=== PATIENT | female | born 1955 | race Caucasian/White ===

== ENCOUNTER 2016-11-19 12:30 | Outpatient (CLI) | payer MEDICARE ==
[2016-10-19 06:31] VITALS: BP 138/64
[2016-11-19 12:57] LABS: eGFR (African) > 60; eGFR (Non-African) > 60
== END 2016-11-19 12:32 ==
LOC: LABRHC 12:30
PROVIDERS: ATTEND Family Medicine
DX: E11.9 Type 2 diabetes mellitus without complications (principal); R60.0 Localized edema
CPT/HCPCS: 80048

== ENCOUNTER 2016-12-20 12:16 | Outpatient (CLI) | payer MEDICARE ==
[2016-10-19 06:31] VITALS: BP 138/64
[2016-12-20 13:24] LABS: eGFR (African) > 60; eGFR (Non-African) > 60
== END 2016-12-20 12:17 ==
LOC: LAB 12:16
PROVIDERS: ATTEND Family Medicine
DX: E11.9 Type 2 diabetes mellitus without complications (principal)
CPT/HCPCS: 36415; 80053; 82043; 83036

== ENCOUNTER 2017-02-07 11:40 | Outpatient (CLI) | payer MEDICARE ==
[2016-10-19 06:31] VITALS: BP 138/64
[2017-02-07 12:07] LABS: BASOPHILS % 0.6 (0.0-1.5); EOSINOPHILS % 1.1 % (0.0-6.8); MEAN CORPUSCULAR HEMOGLOBIN 30.6 pg (28.0-34.0); MEAN CORPUSCULAR VOLUME 93.2 fl (80.0-100.0); MONOCYTES % 4.7 % (0.0-11.0); NEUTROPHILS # 5.9 # k/uL (1.4-7.7)
[2017-02-07 12:24] LABS: eGFR (African) > 60; eGFR (Non-African) > 60
== END 2017-02-07 11:42 ==
LOC: LAB 11:40
PROVIDERS: ATTEND Family Medicine
DX: A43.0 Pulmonary nocardiosis (principal)
CPT/HCPCS: 36415; 80048; 85025

== ENCOUNTER 2017-04-11 12:27 | Outpatient (CLI) | payer MEDICARE ==
[2016-10-19 06:31] VITALS: BP 138/64
[2017-04-11 13:19] LABS: eGFR (African) > 60; eGFR (Non-African) > 60
== END 2017-04-11 12:30 ==
LOC: LAB 12:27
PROVIDERS: ATTEND Family Medicine
DX: E11.9 Type 2 diabetes mellitus without complications (principal)
CPT/HCPCS: 36415; 80053; 80061; 83036

== ENCOUNTER 2017-06-14 13:41 | Outpatient (CLI) | payer MEDICARE ==
[2016-10-19 06:31] VITALS: BP 138/64
--- NOTE | 2017-06-14 14:47 | Diagnostic Imaging Report ---
LIZANDRO WEBB [facility] [address] [facility].[address] [address] Report Submission Date: Jun 14, 2017 2:29:37 PM CDT Patient Study Name: YONIS KUO Date: Jun 14, 2017 1:56:45 PM CDT Modality Type: CR Gender: F Description: PELVIS : 51 Institution: [facility] Physician: LIZANDRO WEBB Examination: Plain film hip History: Hip discomfort Comparison exams: None provided Findings: 2 views of the hip demonstrates the joint space narrowing. Articular ossific spurring. Minimal subchondral cyst formation. No evidence for fracture line. Superior and inferior pubic rami and iliac wing are without advanced degenerative changes. Sacroiliac joint degenerative changes. Pelvic phleboliths. Impression: Articular degenerative changes without fracture. Electronically signed on Jun 14, 2017 2:29:37 PM CDT by: Sudeep VARGAS
== END 2017-06-14 13:42 ==
LOC: RAD 13:41
PROVIDERS: ATTEND Family Medicine
DX: M25.552 Pain in left hip (principal)

== ENCOUNTER 2017-08-07 10:22 | Outpatient (CLI) | payer OTHER ==
[2016-10-19 06:31] VITALS: BP 138/64
== END 2017-08-07 10:23 ==
LOC: LAB 10:22
PROVIDERS: ATTEND Family Medicine
DX: E11.9 Type 2 diabetes mellitus without complications (principal)
CPT/HCPCS: 36415; 83036

== ENCOUNTER 2017-12-13 13:20 | Outpatient (CLI) | payer MEDICARE, MEDICAID ==
[2016-10-19 06:31] VITALS: BP 138/64
[2017-12-13 13:35] LABS: MEAN CORPUSCULAR HEMOGLOBIN 29.9 pg (28.0-34.0); MEAN CORPUSCULAR VOLUME 92.4 fl (80.0-100.0)
[2017-12-13 14:00] LABS: EOSINOPHILS % 2 % (0-7); MONOCYTES % 6 % (0-11); SEGMENTED NEUTROPHILS % 77 % (39-79)
[2017-12-13 23:39] LABS: SERUM IRON 71 ug/dL (37-145)
== END 2017-12-13 13:21 ==
LOC: LABRHC 13:20
PROVIDERS: ATTEND Family Medicine
DX: D50.9 Iron deficiency anemia, unspecified (principal)
CPT/HCPCS: 83540; 83550; 85025

== ENCOUNTER 2018-02-15 11:13 | Emergency (ER) | payer MEDICARE, OTHER ==
[2018-02-15 11:24] VITALS: BP 147/47
--- NOTE | 2018-02-15 11:39 | ED Physician Documentation ---
General Adult - HISTORIAN Historian: patient - HPI Stated Complaint: Left Knee Pain Chief Complaint: General Adult Additional Information: Daughter insisted she come to ER to see if she has a blood clot in her left leg. She has been sick with pneumonia most of this month and subsequently less active. There is no new pain or redness in the left leg. She measures her legs daily and says the left is an inch larger than the right, though this varies between legs. She has chronic SOB and this has not recently changed. She also has CHF and chronic bilateral leg swelling. She has taken Eliquis for 5 years. She has an appointment with Dr. Frye on , February 20. - ROS CONST: recent illness MS/SKIN/LYMPH: joint pain (lateral, above left knee). denies: calf pain - PAST HX Past History: other (sarcoidosis, pneumonia, RSV, CHF, cellulitis of leg) Allergies/Adverse Reactions: Allergies Allergy/AdvReac Type Severity Reaction Status Date / Time cefotetan disodium Allergy Unknown Verified 10/16/16 09:33 Dextrose-Water Allergy Unknown Verified 10/16/16 09:33 Sulfa (Sulfonamide Allergy Unknown Verified 10/16/16 09:33 Antibiotics) adhesive Allergy Rash Verified 10/16/16 09:33 sulfamethoxazole Allergy Hives Verified 10/16/16 09:33 [From Bactrim] trimethoprim [From Bactrim] Allergy Hives Verified 10/16/16 09:33 amiodarone AdvReac Shortness Verified 10/16/16 09:33 of Breath butorphanol tartrate AdvReac Shortness Verified 10/16/16 09:33 [From Stadol] of Breath diltiazem HCl [From Cardizem] AdvReac Shortness Verified 10/16/16 09:33 of Breath doxazosin mesylate AdvReac Shortness Verified 10/16/16 09:33 [From Cardura] of Breath gabapentin [From Neurontin] AdvReac Dizziness Verified 10/16/16 09:33 ketamine AdvReac memory Verified 02/15/18 11:26 impairment NSAIDS (Non-Steroidal AdvReac Abdominal Verified 10/16/16 09:33 Anti-Inflamma Pain pregabalin [From Lyrica] AdvReac Shortness Verified 10/16/16 09:33 of Breath Home Medications: Ambulatory Orders Medication Instructions Recorded Apixaban [Eliquis] 5 mg PO DAILY 02/15/18 Arformoterol Tartrate [Brovana] 15 mcg IH BID 02/15/18 Benazepril HCl [Lotensin] 20 mg PO DAILY 02/15/18 Bisoprolol Fumarate [Zebeta] 10 mg PO DAILY 02/15/18 Famotidine 40 mg PO BID 02/15/18 Famotidine [Famotidine] 02/15/18 Fluticasone/Vilanterol [Breo 1 each IH DAILY 02/15/18 Ellipta 200-25 Mcg INH] Furosemide [Lasix] 02/15/18 Insulin Lispro [Humalog Kwikpen 40 units SQ HS 02/15/18 U-100] Ipratropium/Albuterol Sulfate 3 ml NEB DAILY 02/15/18 [Duoneb] Morphine Sulfate [Morphine Sulfate 60 mg PO BID 02/15/18 ER] Oxycodone HCl/Acetaminophen 1 each PO Q4H 02/15/18 [Endocet 7.5-325 mg Tablet] Pravastatin Sodium [Pravastatin 40 mg PO HS 02/15/18 Sodium] - SOCIAL HX Smoking History: quit greater than 1 year - FAMILY HX Family History: No - VITAL SIGNS Vital Signs: Vital Signs Temp Pulse Resp BP Pulse Ox 98.6 F 78 18 147/47 96 02/15/18 11:15 02/15/18 11:15 02/15/18 11:15 02/15/18 11:15 02/15/18 11:15 - REVIEWED ASSESSMENTS Nursing Assessment Reviewed: Yes Vitals Reviewed: Yes Progress - Progress Progress: Explained that US not available at this facility and that CT of her leg would not be helpful. Offered to arrange for ER eval/US at another facility, but patient declined. Explaine dthat I could not guarantee that there was not a clot in the left leg. That if she chose to forego referral, she was to return to the ER immediately with CP, new SOB, pain or redness or warmth in the leg. Her gait was improved as she left the ER. General Adult Physical Exam - PHYSICAL EXAM GENERAL APPEARANCE: mild distress EENT: eye inspection normal NECK: normal inspection RESPIRATORY: no resp distress BACK: other (fluid movements w/o pain) SKIN: warm/dry, normal color (lower legs pink, skin smooth, slight shine, no hair growth) EXTREMITIES: normal range of motion (antalgic gait ), no evidence of injury, no edema (brawny edema both lower legs, w/o focal warmth or swelling or tenderness. ) NEURO: CN's nml as tested, motor nml, sensation nml Discharge Clincal Impression: Left leg swelling Referrals: Wyatt Frye MD [Primary Care Provider] - 2 Days Additional Instructions: Keep your appointment with Dr. Frye February 20. Return to the ER immediately if there is localized swelling, redness, heat in your leg or if you have chest pain or sudden difficulty breathing. Condition: Fair Disposition: 01 HOME, SELF-CARE Decision to Admit: NO Decision Time: 11:50
== END 2018-02-15 11:45 | disposition home or self-care (01) ==
LOC: ED 11:13
DX: R60.9 Edema, unspecified (principal)
CPT/HCPCS: 99282

== ENCOUNTER 2018-02-20 12:55 | Outpatient (CLI) | payer MEDICARE, MEDICAID ==
[2018-02-20 13:11] LABS: eGFR (African) > 60; eGFR (Non-African) > 60
== END 2018-02-20 12:56 ==
LOC: LABRHC 12:55
PROVIDERS: ATTEND Family Medicine
DX: E11.9 Type 2 diabetes mellitus without complications (principal); I10 Essential (primary) hypertension; I50.9 Heart failure, unspecified
CPT/HCPCS: 80053; 82043; 83036; 83880

== ENCOUNTER 2018-06-12 15:49 | Outpatient (CLI) | payer MEDICARE, MEDICAID ==
[2018-06-12 17:20] LABS: eGFR (African) > 60; eGFR (Non-African) > 60
== END 2018-06-12 15:55 | disposition home or self-care (01) ==
LOC: LABRHC 15:49
PROVIDERS: ATTEND Family Medicine
DX: E11.9 Type 2 diabetes mellitus without complications (principal)
CPT/HCPCS: 80053; 80061; 83036

== ENCOUNTER 2018-07-16 12:33 | Outpatient (CLI) | payer MEDICARE, OTHER ==
--- NOTE | 2018-07-16 21:45 | Diagnostic Imaging Report ---
LIZANDRO WEBB [facility] [address] [address] Report Submission Date: Jul 16, 2018 1:02:50 PM CDT Patient Study Name: YONIS KUO Date: Jul 16, 2018 12:39:38 PM CDT Modality Type: DX Gender: F Description: LOWER EXTREMITY : 51 Institution: [facility] Physician: LIZANDRO WEBB Examination: Plain film right foot History: RT FOOT, PAIN IN RT FOOT AFTER A CAT RAN INTO HER FOOT ON 07/13/18 (Hx) Findings: 3 views of the right foot demonstrates diffuse osteopenia. The articular degenerative changes. No fracture or dislocation. Calcaneal spurs. No soft tissue swelling. No joint effusion. Impression: Osteopenia and degenerative changes. No acute appearing cortical abnormality. Electronically signed on Jul 16, 2018 1:02:50 PM CDT by: Sudeep VARGAS
== END 2018-07-16 12:35 ==
LOC: RAD 12:33
PROVIDERS: ATTEND Family Medicine
DX: M25.571 Pain in right ankle and joints of right foot (principal)
CPT/HCPCS: 73630

== ENCOUNTER 2018-09-18 10:18 | Outpatient (CLI) | payer MEDICARE, OTHER ==
[2018-09-18 11:36] LABS: eGFR (Non-African) > 60
--- NOTE | 2018-09-19 03:52 | Diagnostic Imaging Report ---
LIZANDRO WEBB [facility] [address] [facility].[address] [address] Report Submission Date: Sep 18, 2018 11:50:08 AM DISABILITY HEARING OFFICER Patient Study Name: YONIS KUO Date: Sep 18, 2018 10:22:02 AM DISABILITY HEARING OFFICER Modality Type: DX Gender: F Description: CHEST : 51 Institution: [facility] Physician: LIZANDRO WEBB Examination: PA and lateral chest. History: Evaluate lung braxton. Comparison exam: None provided. Findings: PA and lateral views of the chest demonstrates a normal cardiac silhouette. Mild hilar prominence - patient with reported history of sarcoidosis. Vascular calcifications involving aortic arch. Chronic interstitial changes. No focal infiltrate. No blunting of the costophrenic margins. Osseous structures are appropriate for age. Impression: Chronic interstitial changes. No acute pulmonary process. Electronically signed on Sep 18, 2018 11:50:08 AM DISABILITY HEARING OFFICER by: Sudeep VARGAS
== END 2018-09-18 10:20 ==
LOC: LAB 10:18
PROVIDERS: ATTEND Family Medicine
DX: E11.9 Type 2 diabetes mellitus without complications (principal); I10 Essential (primary) hypertension; J44.9 Chronic obstructive pulmonary disease, unspecified
CPT/HCPCS: 36415; 71046; 80053; 83036; 83880

== ENCOUNTER 2018-12-12 08:41 | Outpatient (CLI) | payer MEDICARE, OTHER ==
[2018-12-12 10:02] LABS: eGFR (Non-African) > 60
== END 2018-12-12 09:00 ==
LOC: LAB 08:41
PROVIDERS: ATTEND Family Medicine
DX: E11.9 Type 2 diabetes mellitus without complications (principal); I48.91 Unspecified atrial fibrillation
CPT/HCPCS: 36415; 80053; 80061; 80162; 82043; 83036

== ENCOUNTER 2019-03-19 10:06 | Outpatient (CLI) | payer MEDICARE, OTHER ==
[2019-04-23 07:28] LABS: eGFR (Non-African) > 60
== END 2019-03-19 10:11 | disposition home or self-care (01) ==
LOC: LAB 10:06
PROVIDERS: ATTEND Family Medicine
DX: E11.51 Type 2 diabetes mellitus with diabetic peripheral angiopathy without gangrene (principal)
CPT/HCPCS: 36415; 80053; 80061; 82043; 83036

== ENCOUNTER 2019-06-19 12:07 | Outpatient (CLI) | payer MEDICARE, OTHER ==
[2019-06-19 13:54] LABS: HDL 39 mg/dL (>40); eGFR (Non-African) > 60
--- NOTE | 2019-06-19 15:23 | Diagnostic Imaging Report ---
LIZANDRO WEBB [facility] [address] [facility] [address] [place] [address]. [address] Report Submission Date: Jun 19, 2019 2:54:23 PM CDT Patient Study Name: YONIS KUO Date: Jun 19, 2019 12:27:06 PM CDT Modality Type: DX Gender: F Description: CHEST 2VIEW : 51 Institution: [facility] Physician: LIZANDRO WEBB Examination: PA and lateral chest. History: Evaluate lung braxton. Shortness of breath. Comparison exam: 18 September 2018 Findings: PA and lateral views of the chest demonstrates a normal cardiac and mediastinal silhouette. Mildly tortuous aorta with vascular calcifications. Chronic interstitial changes. No focal infiltrate. No blunting of the costophrenic margins. Osseous structures are appropriate for age. Impression: Chronic appearing interstitial changes. No focal consolidation or effusion. Electronically signed on Jun 19, 2019 2:54:23 PM CDT by: Sudeep VARGAS
[2019-06-22 07:59] LABS: A1C 8.9 % (<5.7)
== END 2019-06-19 12:10 ==
LOC: LAB 12:07
PROVIDERS: ATTEND Family Medicine
DX: E11.9 Type 2 diabetes mellitus without complications (principal); I48.91 Unspecified atrial fibrillation; R06.02 Shortness of breath
CPT/HCPCS: 36415; 71046; 80053; 80061; 80162; 83036

== ENCOUNTER 2019-08-07 15:32 | Emergency (ER) | payer MEDICARE, OTHER ==
--- NOTE | 2019-08-07 15:43 | ED Physician Documentation ---
General Adult - HISTORIAN Historian: patient - HPI Stated Complaint: shortness of air Chief Complaint: Asthma Onset: hours (6 hours ago - increasing over last few weeks ) Timing: still present, worse Severity: moderate Further Comments: yes (She states that she has several lung issues she does not take daily steriods to not affecte her blood sugar. She states that she has sinus drainage and increased cough. No swelling. No fever. She states she had Lasix last week from her cardilogy) - ROS CONST: no problems MS/SKIN/LYMPH: none NEURO/PSYCH: headache (sinus ) - PAST HX Past History: COPD, CHF Immunizations: UTD Allergies/Adverse Reactions: Allergies Allergy/AdvReac Type Severity Reaction Status Date / Time cefotetan disodium Allergy Unknown Verified 08/07/19 15:44 Dextrose-Water Allergy Unknown Verified 08/07/19 15:44 Sulfa (Sulfonamide Allergy Unknown Verified 08/07/19 15:44 Antibiotics) adhesive Allergy Rash Verified 08/07/19 15:44 sulfamethoxazole Allergy Hives Verified 08/07/19 15:44 [From Bactrim] trimethoprim [From Bactrim] Allergy Hives Verified 08/07/19 15:44 amiodarone AdvReac Shortness Verified 08/07/19 15:44 of Breath butorphanol tartrate AdvReac Shortness Verified 08/07/19 15:44 [From Stadol] of Breath diltiazem HCl [From Cardizem] AdvReac Shortness Verified 08/07/19 15:44 of Breath doxazosin mesylate AdvReac Shortness Verified 08/07/19 15:44 [From Cardura] of Breath gabapentin [From Neurontin] AdvReac Dizziness Verified 08/07/19 15:44 ketamine AdvReac memory Verified 08/07/19 15:44 impairment NSAIDS (Non-Steroidal AdvReac Abdominal Verified 08/07/19 15:44 Anti-Inflamma Pain pregabalin [From Lyrica] AdvReac Shortness Verified 08/07/19 15:44 of Breath Home Medications: Ambulatory Orders Medication Instructions Recorded Arformoterol (Nf) [Brovana] 15 mcg IH BID 02/15/18 Bisoprolol Fumarate [Zebeta] 10 mg PO DAILY 02/15/18 Ipratropium/Albuterol Sulfate 3 ml NEB DAILY 02/15/18 [Duoneb] - SOCIAL HX Smoking History: non-smoker Alcohol Use: none Drug Use: none - FAMILY HX Family History: No - VITAL SIGNS Vital Signs: Vital Signs Temp Pulse Resp BP Pulse Ox 147/47 02/15/18 11:45 - REVIEWED ASSESSMENTS Nursing Assessment Reviewed: Yes Vitals Reviewed: Yes Progress - Progress Progress: 1650: Lung sounds slightly improved post neb DG Discussed case with no edema will not give additional lasix and she will start her home prednisone DG ED Results Lab/Radiology - Orders Orders: ED Orders Category Date Time Status Ipratropium/Albuterol Sulfate [Duoneb] Med 08/07/19 15:32 Discontinued 3 ml NEB .STK-MED ONE General Adult Physical Exam - PHYSICAL EXAM GENERAL APPEARANCE: no distress EENT: eye inspection normal, ENT inspection normal, pharynx normal, no signs of dehydration NECK: normal inspection RESPIRATORY: no resp distress, wheezes, rhonchi CVS: reg rate & rhythm, heart sounds normal ABDOMEN: soft, normal bowel sounds, no distension BACK: normal inspection SKIN: warm/dry, normal color EXTREMITIES: non-tender, no edema NEURO: oriented X3 Discharge Clincal Impression: Sinusitis Qualifiers: Sinusitis location: frontal Chronicity: acute Recurrence: recurrent Qualified Code(s): J01.11 - Acute recurrent frontal sinusitis Referrals: Wyatt Frye MD [Primary Care Provider] - 2 Days Comments: 1. Levaquin 750 mg take 1 by mouth daily x 7 days 2. Prednisone 20 mg take 1 by mouth 5 x days 3. Use nebs 4. Follow up with your Dr Saturday 5. Return to ER for any increased concerns Condition: Stable Disposition: 01 HOME, SELF-CARE Decision to Admit: NO Date of Decison to Admit: 08/07/19 Decision Time: 16:51
[2019-08-07] MEDS: IPRATROPIUM/ALBUTEROL SULFATE 3 ML AMPUL.NEB NEB ONE ×2 (15:57)
[2019-08-07 16:02] LABS: BASOPHILS % 0.5 % (0.0-1.5); NEUTROPHILS # 6.8 # k/uL (1.4-7.7)
[2019-08-07] MEDS: methylPREDNISolone SOD SUCC 125 MG/2 ML VIAL IVP ONE (16:10)
--- NOTE | 2019-08-07 16:17 | Diagnostic Imaging Report ---
PATIENT MR#: [id number] PATIENT PATIENT NAME: YONIS KUO DATE OF : 1955 REFERRING PHYSICIAN: Tami Cox EXAM DATE: 08/07/2019 ACCESSION NUMBER: [id number] EXAM DESCRIPTION: CHEST 2VIEW Exam: Chest two views. History: Shortness of breath. The examination is compared to study dated June 19, 2019. Lung braxton are well aerated. Prominent interstitial markings described previously is chronic have n ot changed in the interval. No consolidations or effusions are seen. Heart and mediastinal contour stable with athero sclerotic plaques seen in the aorta. Impression: No interval change. Read by: Dr. Regan Edwards Transcribed by: Transcribed Date: Electronically signed by: Dr. Regan Edwards Date signed: 08/07/2019 4:16:35 PM
[2019-08-07 16:18] LABS: eGFR (Non-African) > 60
[2019-08-07 17:01] VITALS: BP 142/81
== END 2019-08-07 16:55 | disposition home or self-care (01) ==
LOC: ED 15:32
DX: J01.11 Acute recurrent frontal sinusitis (principal)
CPT/HCPCS: 71046; 80053; 83880; 85025; 94640; 96374; 99283; 99284; J2930; S1016

== ENCOUNTER 2019-08-10 13:36 | Inpatient (IN) | payer MEDICARE, OTHER ==
[2019-08-10 14:05] VITALS: BMI 32.1
[2019-08-10] MEDS ORDERED: methylPREDNISolone SOD SUCC 125 MG/2 ML VIAL IVP ONE (14:46)
[2019-08-10 15:45] LABS: eGFR (Non-African) > 60
[2019-08-10 15:46] LABS: BASOPHILS % 0.9 % (0.0-1.5); NEUTROPHILS # 9.9 # k/uL (1.4-7.7)
[2019-08-10 15:47] LABS: ANISOCYTOSIS 1+ (NEGATIVE); SEGMENTED NEUTROPHILS % 62 % (39-79)
--- NOTE | 2019-08-10 17:34 | History and Physical Report ---
History of Present Illnes - History of Present Illness Reason for Visit: dyspnea History of Present Illness: 64-year-old white female with a known history of COPD. Patient is multiple other medical problems including atrial fibrillation, diabetes mellitus, and chronic pain to the lower back. over the last week patient is had increasing shortness of breath dyspnea. Patient stated the symptoms began of the head cold and then moved down into her lungs. Patient no has a productive cough of some green to yellow phlegm. Has had a low-grade fever and chills.patient has been complaining of chest pain related to coughing. Patient been having increasing shortness of breath. Patient was seen in the emergency room started on antibiotic therapy and was given 120mg of sloumedrol. Patient states that the symptoms did not improve the last several days. Patient was seen in the office today. Patient pulse ox was 84% on room air. Patient subsequently admitted to the hospital for further care and evaluation. - Past Medical History Cardiac: AFIB, CAD (30-40% RCA stenosis 04/30), CHF (60% EF 11/04 Echo), HTN Pulmonary: COPD, Other (Pulmonary hypertension) Gastrointestinal: GERD Heme/Onc: Other (H/o DVT) Musculoskeletal: Chronic low back pain Rheumatologic: Rheumatoid arthritis, Other (Sarcoidosis) Endocrine: Diabetes (Last A1C was 9.4 01/02.) - Past Surgical History Past Surgical History: Cholecystectomy, , Tubal Ligation, Tonsillectomy (Adenoidectomy), Other (neuroma excision from foot, lapaarotomy, ear tubes) - Past Family History Mother Family History: Cancer (bone marrow cancer, skin cancer) Father Family History: None - Past Social History Smoke: Quit Occupation: Disabled nurse Alcohol: None Drugs: None Lives: With Family - Health Maintenance Health Maintenance: Influenza Vaccine, Pneumococcal Vaccine, Mammogram Influenza Vaccine: No Pneumonia Vaccine: Yes Resuscitation Status: Resusciation Status Resuscitation Status Full Code - Unable to Obtain History Unable to Obtain: No Review of Systems - Review of Systems Constitutional: Fever, Chills, Sweats, Weakness Eyes: negative: pain, vision change, conjunctivae inflammation ENT: Nose Discharge (clear). negative: Ear Pain, Ear Discharge, Nose Pain, Nose Congestion, Mouth Pain, Mouth Swelling, Throat Swelling Respiratory: Cough, Shortness of Breath, SOB with Excertion, Pleuritic Pain, Sputum (green). negative: Hemoptysis, Wheezing Cardiovascular: Chest Pain, Palpitations. negative: Orthopnea, Paroxysmal Noc. Dyspnea, Edema, Light Headedness Gastrointestinal: negative: Nausea, Vomiting, Abdominal Pain, Diarrhea, Constipation, Melena, Hematochezia Genitourinary: negative: Dysuria, Frequency, Incontinence, Hematuria Musculoskeletal: Back Pain Skin: negative: Rash Neurological: negative: Weakness, Numbness, Incoordination, Change in Speech, Confusion, Seizures - Medications/Allergies Allergies/Adverse Reactions: Allergies Allergy/AdvReac Type Severity Reaction Status Date / Time cefotetan disodium Allergy Unknown Verified 08/07/19 15:44 Dextrose-Water Allergy Unknown Verified 08/07/19 15:44 Sulfa (Sulfonamide Allergy Unknown Verified 08/07/19 15:44 Antibiotics) adhesive Allergy Rash Verified 08/07/19 15:44 sulfamethoxazole Allergy Hives Verified 08/07/19 15:44 [From Bactrim] trimethoprim [From Bactrim] Allergy Hives Verified 08/07/19 15:44 amiodarone AdvReac Shortness Verified 08/07/19 15:44 of Breath butorphanol tartrate AdvReac Shortness Verified 08/07/19 15:44 [From Stadol] of Breath diltiazem HCl [From Cardizem] AdvReac Shortness Verified 08/07/19 15:44 of Breath doxazosin mesylate AdvReac Shortness Verified 08/07/19 15:44 [From Cardura] of Breath gabapentin [From Neurontin] AdvReac Dizziness Verified 08/07/19 15:44 ketamine AdvReac memory Verified 08/07/19 15:44 impairment NSAIDS (Non-Steroidal AdvReac Abdominal Verified 08/07/19 15:44 Anti-Inflamma Pain pregabalin [From Lyrica] AdvReac Shortness Verified 08/07/19 15:44 of Breath Home Medications: Home Medications Insulin Glargine,Hum.rec.anlog [Lantus Solostar] 40 unit SQ HS 08/10/19 Insulin Lispro [Humalog Kwikpen U-100] 40 unit SQ AC15 08/10/19 Current Inpatient Medications: Current Inpatient Medications Apixaban (Eliquis) 5 mg PO BID [facility] Stop: 09/09/19 20:59 Digoxin (Lanoxin) 125 mcg PO [id number] [facility] Stop: 09/10/19 11:59 Glimepiride (Amaryl) 4 mg PO 0730 [facility] Stop: 09/10/19 07:29 Insulin Glargine (Basaglar Kwik-Pen) 20 unit SQ HS [facility] Stop: 09/09/19 20:59 Insulin Human Regular (Novolin R) 0 - 12 unit SQ CHEMQID [facility]; Protocol Stop: 09/09/19 20:59 Lisinopril (Prinivil) 20 mg PO DAILY [facility] Stop: 09/10/19 08:59 Methylprednisolone Sodium Succinate (Solu-Medrol) 80 mg IVP Q12 [facility] Stop: 09/10/19 08:59 Metoprolol Succinate (Toprol Xl) 25 mg PO BID [facility] Stop: 09/09/19 20:59 Miscellaneous (Chem Sticks) 1 each MC CHEMQID [facility] Stop: 09/09/19 20:59 Morphine Sulfate (Ms Contin (Nf)) 60 mg PO BID [facility] Stop: 09/10/19 08:59 Oxycodone/Acetaminophen (Percocet 10-325) 1 each PO Q4H PRN PRN Reason: pain Stop: 09/09/19 15:46 Potassium Chloride (Klor-Con 10) 10 meq PO TID [facility] Stop: 09/09/19 17:59 Pravastatin Sodium (Pravachol) 40 mg PO HS [facility] Stop: 09/09/19 20:59 Exam - Exam Vital Signs: Vital Signs (72 hours) 08/10/19 08/10/19 13:54 13:57 Temperature 99.8 F H 99.8 F H Pulse Rate [ 100 H 100 H Right] Respiratory 22 22 Rate Blood Pressure 150/70 150/70 [Right Arm] O2 Sat by Pulse 97 97 Oximetry General: Alert, Oriented to Person, Oriented to Place, Oriented to Time, Cooperative HEENT: Atraumatic, PERRLA, EOMI, Mouth Mucous membr. moist/[place], Nose Mucous membr. moist/[place], Dentition Normal, Hearing Grossly Normal Neck: Normal Range of Motion Carotids: WNL Thyroid: WNL Lungs: Normal air movement, Speaks full Sentences, Wheezes, Rales Cardiovascular: Regular rate, Normal S1, Normal S2, No murmurs, Irregularly Irregular Abdomen: Normal bowel sounds, Soft, No tenderness, No hepatospenomegaly, No masses. No: Distended Integumentary: Normal, [place], Warm, Dry Extremities: No clubbing, No cyanosis, No edema, Normal pulses, No tenderness/swelling Neurological: Normal gait, Normal speech, Strength Equal Bilat, Normal tone, Sensation intact, Cranial nerves 3-12 NL, Reflexes 2+ Psych/Mental Status: Mental status NL, Mood NL, Appropriate Affect, Intact Judgment - Laboratory Results Laboratory Results: Laboratory Results 08/10/19 08/10/19 15:23 15:23 WBC 15.30 H RBC 3.61 L Hgb 12.0 Hct 34.4 L MCV 95.0 MCH 33.2 MCHC 34.8 RDW 15.0 H Plt Count 283 Neut % (Auto) 64.7 Lymph % (Auto) 23.4 [place] % (Auto) 10.0 Eos % (Auto) 1.0 Baso % (Auto) 0.9 Neut # (Auto) 9.9 H Lymph # (Auto) 3.6 [place] # (Auto) 1.5 H Eos # (Auto) 0.2 Baso # (Auto) 0.1 Seg Neutrophils % 62 Lymphocytes % 29 Monocytes % 7 Eosinophils % 1 Reactive Lymphocytes 1 Plt Morphology Comment Normal Anisocytosis 1+ H RBC Morph Comment Abnormal H Sodium 140 Potassium 3.4 L Chloride 97 L Carbon Dioxide 29 Anion Gap 17.4 BUN 29 H Creatinine 1.01 Estimated Creat Clear 100 Est GFR ( Amer) > 60 Est GFR (Non-Af Amer) > 60 Glucose 102 Calcium 9.9 Total Bilirubin 0.4 AST 36 ALT 28 Alkaline Phosphatase 73 Total Protein 7.9 Albumin 4.6 Assessment/Plan - Assessment/Plan (1) COPD with acute exacerbation Status: Acute Current Visit: Yes Assessment: Patient will start on nebulized treatments, will give support of oxygen as needed to maintain SaO2 greater than 90%. Patient will be started on IV steroids. (2) Bronchitis Status: Acute Current Visit: No Assessment: Patient will be started on antibiotic therapy. (3) Sarcoidosis of lung Status: Acute Current Visit: No (4) Controlled atrial fibrillation Status: Chronic Current Visit: No Assessment: Will continue home medications. (5) Diabetes mellitus Status: Chronic Current Visit: No Qualifiers: Diabetes mellitus type: type 2 Diabetes mellitus complication detail: with polyneuropathy Plan: Will continue home medication. Patient will be started on sliding scale insulin. (6) Heart failure Status: Chronic Current Visit: No Assessment: We will continue home medications. (7) Hypertension Status: Chronic Current Visit: No Assessment: Will continue home medications. (8) Rheumatoid arthritis Status: Chronic Current Visit: No Assessment: Will continue home medications. VTE Assessment - RISK FACTOR SCORE VTE RISK FACTOR SCORES: AGE OVER 60 YEARS, ACUTE INFECTION OTHER THEN SEPSIS, ACUTE RESPIRATORY FAILURE/SEVERE COPD - RISK VTE HIGH RISK: SCORE OF 3-4 (RISK PROXIMAL DVT 4-8%) PROPHYLAXIS NEEDED (on eliquis)
[2019-08-10] MEDS ORDERED: AZITHROMYCIN 500 MG VIAL IV ONE (17:52)
[2019-08-10] MEDS ORDERED: 0.9 % SODIUM CHLORIDE 250 ML IV ONE (17:52)
[2019-08-10] MEDS: POTASSIUM CHLORIDE 10 MEQ TABLET.ER PO SCH (18:06)
[2019-08-10] MEDS: AZITHROMYCIN 500 MG in 0.9 % SODIUM CHLORIDE 250 ML IV SCH (18:07)
--- NOTE | 2019-08-10 18:13 | Diagnostic Imaging Report ---
PATIENT MR#: [id number] PATIENT PATIENT NAME: YONIS KUO DATE OF : 1955 REFERRING PHYSICIAN: Wyatt Frye EXAM DATE: 08/10/2019 ACCESSION NUMBER: [id number] EXAM DESCRIPTION: CHEST 1VIEW Exam: AP chest. History: Shortness of breath. The examination is compared to a study dated August 07, 2019. Lung braxton are well aerated. Diminished perihilar infiltrates are noted. No consolidation or effus ions are seen. Heart and mediastinal contour are normal. No bony abnormalities are seen. Impression: Diminished perihilar infiltrates. Read by: Dr. Regan Edwards Transcribed by: Transcribed Date: Electronically signed by: Dr. Regan Edwards Date signed: 08/10/2019 6:12:54 PM
[2019-08-10] MEDS: FUROSEMIDE 40 MG TABLET PO SCH (19:35)
[2019-08-10] MEDS ORDERED: INSULIN GLARGINE,HUM.REC.ANLOG 100 UNIT/ML PEN.INJCTR SQ SCH (21:00)
[2019-08-10] MEDS: APIXABAN 5 MG TABLET PO SCH (21:46)
[2019-08-10] MEDS: PRAVASTATIN SODIUM 20 MG TABLET PO SCH (21:46)
[2019-08-10] MEDS: METOPROLOL SUCCINATE 50 MG TAB.ER.24H PO SCH (21:46)
[2019-08-10] MEDS: IPRATROPIUM BROMIDE 0.5 MG/2.5 ML AMPUL.NEB NEB SCH ×2 (22:23)
[2019-08-10] MEDS: INSULIN REGULAR, HUMAN 100 UNIT/ML 10ML VIAL SQ SCH (22:25)
[2019-08-11] MEDS: IPRATROPIUM BROMIDE 0.5 MG/2.5 ML AMPUL.NEB NEB SCH ×6 (01:04→21:45)
[2019-08-11 07:19] LABS: OCCULT BLOOD,URINE NEGATIVE (NEGATIVE)
[2019-08-11 07:20] LABS: APPEARANCE,URINE CLEAR (CLEAR); COLOR,URINE YELLOW (YELLOW); UROBILINOGEN URINE 0.2 Eu (0.2-1.0)
[2019-08-11] MEDS: INSULIN REGULAR, HUMAN 100 UNIT/ML 10ML VIAL SQ SCH ×4 (07:27→21:20)
[2019-08-11] MEDS: GLIMEPIRIDE 2 MG TABLET PO SCH (07:27)
--- NOTE | 2019-08-11 08:28 | Inpatient Progress Note ---
Subjective - Required Recertification Statement I anticipate X number of days because-include discharge plan: 2 days - Review of Systems Events since last encounter: Patient stated she is feeling better today than she was yesterday. Feels like she can move air better. Patient bill complains of shortness of breath and dyspnea with exertion and walking a short distance. Patient continues to have some wheezing. Patient denies any fever or chills. Objective - Exam Vitals and I&O: Vital Signs Temp 97.2 F L 08/11/19 05:42 Pulse 75 08/11/19 05:42 Resp 22 08/11/19 05:43 BP 126/67 08/11/19 05:42 Pulse Ox 98 08/11/19 05:42 Intake & Output 08/10/19 08/10/19 08/11/19 11:59 23:59 11:59 Intake Total 770 300 Output Total 800 1000 Balance -30 -700 Weight 98.792 kg Intake: IV 110 right forarm 110 Oral 660 300 Output: Urine 800 1000 Other: Voiding Method Toilet Toilet General: Alert, Oriented to Person, Oriented to Place, Oriented to Time, Cooperative Neck: Supple Lungs: Speaks full Sentences, Respiratory Distress (mild), Wheezes, Rhonchi (course bilateral) Cardiovascular: No murmurs, Irregularly Irregular, Atrial Fib Extremities: No clubbing, No tenderness/swelling Skin: Normal, [place], Warm, Dry Neurological: Normal gait, Normal speech, Strength Equal Bilat, Sensation intact Psych/Mental Status: Mental status NL, Mood NL, Appropriate Affect, Intact Judgment - Results Results: Laboratory Results WBC 15.30 K/ul (4.00-12.00) H 08/10/19 15:23 RBC 3.61 M/ul (3.90-5.20) L 08/10/19 15:23 Hgb 12.0 g/dL (11.5-16.0) 08/10/19 15:23 Hct 34.4 % (34.5-46.5) L 08/10/19 15:23 MCV 95.0 fl (80.0-100.0) 08/10/19 15:23 MCH 33.2 pg (28.0-34.0) 08/10/19 15:23 MCHC 34.8 g/dL (30.0-36.0) 08/10/19 15:23 RDW 15.0 % (11.3-14.3) H 08/10/19 15:23 Plt Count 283 K/mm3 (130-400) 08/10/19 15:23 Neut % (Auto) 64.7 % (39.0-79.0) 08/10/19 15:23 Lymph % (Auto) 23.4 % (16.0-50.0) 08/10/19 15:23 [place] % (Auto) 10.0 % (0.0-11.0) 08/10/19 15:23 Eos % (Auto) 1.0 % (0.0-6.8) 08/10/19 15: Baso % (Auto) 0.9 % (0.0-1.5) 08/10/19 15:23 Neut # (Auto) 9.9 # k/uL (1.4-7.7) H 08/10/19 15:23 Lymph # (Auto) 3.6 # k/uL (0.6-4.0) 08/10/19 15:23 [place] # (Auto) 1.5 # k/uL (0.0-0.9) H 08/10/19 15:23 Eos # (Auto) 0.2 # k/uL (0.0-0.6) 08/10/19 15:23 Baso # (Auto) 0.1 # k/uL (0.0-0.5) 08/10/19 15: Seg Neutrophils % 62 % (39-79) 08/10/19 15:23 Lymphocytes % 29 % (16-50) 08/10/19 15:23 Monocytes % 7 % (0-11) 08/10/19 15: Eosinophils % 1 % (0-7) 08/10/19 15:23 Reactive Lymphocytes 1 % (0-5) 08/10/19 15:23 Plt Morphology Comment Normal (NORMAL) 08/10/19 15: Anisocytosis 1+ (NEGATIVE) H 08/10/19 15:23 RBC Morph Comment Abnormal (NORMAL) H 08/10/19 15:23 Sodium 140 mmol/L (137-145) 08/10/19 15:23 Potassium 3.4 mmol/L (3.5-5.1) L 08/10/19 15:23 Chloride 97 mmol/L (98-107) L 08/10/19 15:23 Carbon Dioxide 29 mmol/L (22-30) 08/10/19 15:23 Anion Gap 17.4 08/10/19 15:23 BUN 29 mg/dL (7-17) H 08/10/19 15:23 Creatinine 1.01 mg/dL (0.52-1.04) 08/10/19 15:23 Estimated Creat Clear 100 08/10/19 15:23 Est GFR ( Amer) > 60 (60-) 08/10/19 15:23 Est GFR (Non-Af Amer) > 60 (60-) 08/10/19 15:23 Glucose 102 mg/dL (74-106) 08/10/19 15:23 Calcium 9.9 mg/dL (8.4-10.2) 08/10/19 15:23 Total Bilirubin 0.4 mg/dL (0.2-1.3) 08/10/19 15:23 AST 36 U/L (15-46) 08/10/19 15:23 ALT 28 U/L (0-35) 08/10/19 15:23 Alkaline Phosphatase 73 U/L (38-126) 08/10/19 15:23 Total Protein 7.9 g/dL (6.3-8.2) 08/10/19 15:23 Albumin 4.6 g/dL (3.5-5.0) 08/10/19 15:23 Urine Color Yellow (YELLOW) 08/10/19 22:39 Urine Appearance Clear (CLEAR) 08/10/19 22:39 Urine pH 6.0 (5.0 - 8.0) 08/10/19 22:39 Ur Specific [place] 1.010 (1.010-1.030) 08/10/19 22:39 Urine Protein Trace mg/dL (NEGATIVE) 08/10/19 22:39 Urine Ketones 1+ mg/dL (NEGATIVE) H 08/10/19 22:39 Urine Occult Blood Negative (NEGATIVE) 08/10/19 22:39 Urine Nitrite Negative (NEGATIVE) 08/10/19 22:39 Urine Bilirubin Negative (NEGATIVE) 08/10/19 22:39 Urine Urobilinogen 0.2 Eu (0.2-1.0) 08/10/19 22:39 Ur Leukocyte Esterase Negative (NEGATIVE) 08/10/19 22:39 Urine Glucose 3+ mg/dL (NEGATIVE) H 08/10/19 22:39 Assessment/Plan - Assessment/Plan (1) COPD with acute exacerbation Status: Acute Current Visit: Yes Assessment: Appears improved a this time (2) Bronchitis Status: Acute Current Visit: No Assessment: stable (3) Sarcoidosis of lung Status: Chronic Current Visit: No Assessment: stable (4) Controlled atrial fibrillation Status: Chronic Current Visit: No Assessment: stable with controlled rate (5) Diabetes mellitus Status: Chronic Current Visit: No Qualifiers: Diabetes mellitus type: type 2 Diabetes mellitus complication detail: with polyneuropathy Assessment: Blood sugars have been running high, will increase insulin (6) Heart failure Status: Chronic Current Visit: No Assessment: stable on home meds (7) Hypertension Status: Chronic Current Visit: No Qualifiers: Hypertension type: essential hypertension Qualified Code(s): I10 - Essential (primary) hypertension Assessment: stable on home meds (8) Rheumatoid arthritis Status: Chronic Current Visit: No Qualifiers: Rheumatoid factor presence: with rheumatoid factor Assessment: stable
[2019-08-11] MEDS: LISINOPRIL 20 MG TABLET PO SCH (09:04)
[2019-08-11] MEDS: APIXABAN 5 MG TABLET PO SCH ×2 (09:04→20:23)
[2019-08-11] MEDS: METOPROLOL SUCCINATE 50 MG TAB.ER.24H PO SCH ×2 (09:06→20:18)
[2019-08-11] MEDS: FUROSEMIDE 40 MG TABLET PO SCH ×2 (09:08→17:16)
[2019-08-11] MEDS: POTASSIUM CHLORIDE 10 MEQ TABLET.ER PO SCH (09:09)
[2019-08-11] MEDS: MORPHINE SULFATE 30 MG PO SCH ×2 (09:09→20:19)
[2019-08-11] MEDS: methylPREDNISolone SOD SUCC 40 MG/ML VIAL IVP SCH ×2 (09:10→21:47)
[2019-08-11] MEDS: INSULIN ASPART 100 UNIT/ML INSULN.PEN SQ SCH ×2 (11:53→17:11)
[2019-08-11] MEDS: DIGOXIN 125 MCG TABLET PO SCH (12:00)
[2019-08-11] MEDS: PATIENT OWN MED 1 EACH EACH PO SCH ×2 (13:47→17:17)
[2019-08-11] MEDS: AZITHROMYCIN 500 MG in 0.9 % SODIUM CHLORIDE 250 ML IV SCH (19:43)
[2019-08-11] MEDS: INSULIN GLARGINE,HUM.REC.ANLOG 100 UNIT/ML PEN.INJCTR SQ SCH (21:06)
[2019-08-11] MEDS: PRAVASTATIN SODIUM 20 MG TABLET PO SCH (21:49)
[2019-08-11] MEDS: OXYBUTYNIN CHLORIDE 5 MG TABLET PO SCH (21:50)
[2019-08-12] MEDS: IPRATROPIUM BROMIDE 0.5 MG/2.5 ML AMPUL.NEB NEB SCH ×6 (01:07→23:58)
[2019-08-12] MEDS: MORPHINE SULFATE 30 MG PO SCH ×2 (08:36→21:25)
[2019-08-12] MEDS: METOPROLOL SUCCINATE 50 MG TAB.ER.24H PO SCH ×2 (08:37→21:23)
[2019-08-12] MEDS: APIXABAN 5 MG TABLET PO SCH ×2 (08:37→21:21)
[2019-08-12] MEDS: LISINOPRIL 20 MG TABLET PO SCH (08:37)
[2019-08-12] MEDS: methylPREDNISolone SOD SUCC 40 MG/ML VIAL IVP SCH ×3 (08:41→21:25)
[2019-08-12] MEDS: PATIENT OWN MED 1 EACH EACH PO SCH ×3 (08:42→16:27)
[2019-08-12] MEDS: GLIMEPIRIDE 2 MG TABLET PO SCH (08:43)
[2019-08-12] MEDS: INSULIN ASPART 100 UNIT/ML INSULN.PEN SQ SCH ×3 (08:44→17:57)
[2019-08-12] MEDS: INSULIN REGULAR, HUMAN 100 UNIT/ML 10ML VIAL SQ SCH ×4 (08:48→23:44)
[2019-08-12 08:52] LABS: SEGMENTED NEUTROPHILS % 84 % (39-79)
[2019-08-12 08:53] LABS: TEAR DROP CELLS 1+ (NEGATIVE)
[2019-08-12] MEDS: FUROSEMIDE 40 MG TABLET PO SCH ×2 (08:57→16:23)
[2019-08-12] MEDS: FAMOTIDINE 20 MG TABLET PO SCH ×2 (09:11→21:29)
[2019-08-12 10:10] LABS: eGFR (Non-African) > 60
[2019-08-12] MEDS: DIGOXIN 125 MCG TABLET PO SCH (12:51)
[2019-08-12] MEDS: OXYBUTYNIN CHLORIDE 5 MG TABLET PO SCH ×2 (12:51→21:28)
[2019-08-12] MEDS: AZITHROMYCIN 500 MG in 0.9 % SODIUM CHLORIDE 250 ML IV SCH (16:43)
[2019-08-12] MEDS ORDERED: FUROSEMIDE 40 MG/4 ML VIAL ONE (20:35)
[2019-08-12] MEDS ORDERED: FUROSEMIDE 40 MG/4 ML VIAL IVP ONE (20:59)
--- NOTE | 2019-08-12 21:04 | Inpatient Progress Note ---
Subjective - Required Recertification Statement I anticipate X number of days because-include discharge plan: 1 day - Review of Systems Events since last encounter: Patient does seem to be doing some better today. Patient does seem to be moving air better than what she has before. Patient still complains of shortness of breath and dyspnea when she ambulates. Patient denies any chest pain or chest pressure. Bowel limits have been okay. Blood sugars continue to run elevated but they are improved over yesterday. General: Denies: Chills, Night Sweats Pulmonary: Dyspnea, Cough Cardiovascular: Denies: Chest Pain, Palpitations Gastrointestinal: Denies: Nausea, Vomiting, Abdominal Pain Objective - Exam Vitals and I&O: Vital Signs Temp 98.4 F 08/12/19 17:46 Pulse 82 08/12/19 18:00 Resp 20 08/12/19 18:00 BP 142/77 08/12/19 17:46 Pulse Ox 98 08/12/19 17:46 Intake & Output 08/11/19 08/12/19 08/12/19 23:59 11:59 23:59 Intake Total 1260 1220 480 Output Total 2600 1500 Balance -1340 -280 480 Intake: Oral 1260 1220 480 Output: Urine 2600 1500 Other: Voiding Method Toilet Toilet # Voids 6 General: Alert, Oriented to Person, Oriented to Place, Oriented to Time, Interventional Pain Physician perative HEENT: Atraumatic, PERRLA, EOMI, Mouth Mucous membr. moist/[place], Nose Mucous membr. moist/[place] Neck: Supple, No JVD, No thyromegaly Lungs: Speaks full Sentences, Wheezes (mild), Rhonchi (scattered) Cardiovascular: Normal S1, Normal S2, No murmurs, Irregularly Irregular, Atrial Fib Abdomen: Normal bowel sounds, Soft, No tenderness, No hepatospenomegaly, No masses Extremities: No clubbing, No cyanosis, No edema Skin: Normal, [place], Warm, Dry Neurological: Normal gait, Normal speech Psych/Mental Status: Mental status NL, Mood NL, Appropriate Affect, Intact Judgment - Results Results: Laboratory Results WBC 16.40 K/ul (4.00-12.00) H 08/12/19 08:00 RBC 3.74 M/ul (3.90-5.20) L 08/12/19 08:00 Hgb 12.3 g/dL (11.5-16.0) 08/12/19 08:00 Hct 35.7 % (34.5-46.5) 08/12/19 08:00 MCV 96.0 fl (80.0-100.0) 08/12/19 08:00 MCH 32.8 pg (28.0-34.0) 08/12/19 08:00 MCHC 34.3 g/dL (30.0-36.0) 08/12/19 08:00 RDW 14.7 % (11.3-14.3) H 08/12/19 08:00 Plt Count 287 K/mm3 (130-400) 08/12/19 08:00 Neut % (Auto) 64.7 % (39.0-79.0) 08/10/19 15:23 Lymph % (Auto) 23.4 % (16.0-50.0) 08/10/19 15:23 [place] % (Auto) 10.0 % (0.0-11.0) 08/10/19 15:23 Eos % (Auto) 1.0 % (0.0-6.8) 08/10/19 15:23 Baso % (Auto) 0.9 % (0.0-1.5) 08/10/19 15:23 Neut # (Auto) 9.9 # k/uL (1.4-7.7) H 08/10/19 15:23 Lymph # (Auto) 3.6 # k/uL (0.6-4.0) 08/10/19 15:23 [place] # (Auto) 1.5 # k/uL (0.0-0.9) H 08/10/19 15:23 Eos # (Auto) 0.2 # k/uL (0.0-0.6) 08/10/19 15:23 Baso # (Auto) 0.1 # k/uL (0.0-0.5) 08/10/19 15:23 Seg Neutrophils % 84 % (39-79) H 08/12/19 08:00 Band Neutrophils % 1 % (0-12) 08/12/19 08:00 Lymphocytes % 11 % (16-50) L 08/12/19 08:00 Monocytes % 4 % (0-11) 08/12/19 08:00 Eosinophils % 1 % (0-7) 08/10/19 15:23 Reactive Lymphocytes 1 % (0-5) 08/10/19 15:23 Plt Morphology Comment Normal (NORMAL) 08/12/19 08:00 Anisocytosis 1+ (NEGATIVE) H 08/10/19 15:23 Tear Drop Cells 1+ (NEGATIVE) H 08/12/19 08:00 RBC Morph Comment Normal (NORMAL) 08/12/19 08:00 Sodium 136 mmol/L (137-145) L 08/12/19 08:00 Potassium 4.0 mmol/L (3.5-5.1) 08/12/19 08:00 Chloride 95 mmol/L (98-107) L 08/12/19 08:00 Carbon Dioxide 29 mmol/L (22-30) 08/12/19 08:00 Anion Gap 16.0 08/12/19 08:00 BUN 31 mg/dL (7-17) H 08/12/19 08:00 Creatinine 0.77 mg/dL (0.52-1.04) 08/12/19 08:00 Estimated Creat Clear 131 08/12/19 08:00 Est GFR ( Amer) > 60 (60-) 08/12/19 08:00 Est GFR (Non-Af Amer) > 60 (60-) 08/12/19 08:00 Glucose 494 mg/dL (74-106) H 08/12/19 08:00 Calcium 9.2 mg/dL (8.4-10.2) 08/12/19 08:00 Total Bilirubin 0.3 mg/dL (0.2-1.3) 08/12/19 08:00 AST 44 U/L (15-46) 08/12/19 08:00 ALT 27 U/L (0-35) 08/12/19 08:00 Alkaline Phosphatase 113 U/L (38-126) 08/12/19 08:00 Total Protein 7.1 g/dL (6.3-8.2) 08/12/19 08:00 Albumin 4.3 g/dL (3.5-5.0) 08/12/19 08:00 Urine Color Yellow (YELLOW) 08/10/19 22:39 Urine Appearance Clear (CLEAR) 08/10/19 22:39 Urine pH 6.0 (5.0 - 8.0) 08/10/19 22:39 Ur Specific [place] 1.010 (1.010-1.030) 08/10/19 22:39 Urine Protein Trace mg/dL (NEGATIVE) 08/10/19 22:39 Urine Ketones 1+ mg/dL (NEGATIVE) H 08/10/19 22:39 Urine Occult Blood Negative (NEGATIVE) 08/10/19 22:39 Urine Nitrite Negative (NEGATIVE) 08/10/19 22:39 Urine Bilirubin Negative (NEGATIVE) 08/10/19 22:39 Urine Urobilinogen 0.2 Eu (0.2-1.0) 08/10/19 22:39 Ur Leukocyte Esterase Negative (NEGATIVE) 08/10/19 22:39 Urine Glucose 3+ mg/dL (NEGATIVE) H 08/10/19 22:39 Assessment/Plan - Assessment/Plan (1) COPD with acute exacerbation Status: Acute Current Visit: Yes Assessment: improving (2) Bronchitis Status: Acute Current Visit: No Assessment: improving (3) Sarcoidosis of lung Status: Chronic Current Visit: No (4) Controlled atrial fibrillation Status: Chronic Current Visit: No Assessment: controlled rate (5) Diabetes mellitus Status: Chronic Current Visit: No Qualifiers: Diabetes mellitus type: type 2 Diabetes mellitus complication detail: with polyneuropathy Assessment: has improved with increased insulin (6) Heart failure Status: Chronic Current Visit: No Assessment: stable (7) Hypertension Status: Chronic Current Visit: No Qualifiers: Hypertension type: essential hypertension Qualified Code(s): I10 - Essential (primary) hypertension Assessment: stable (8) Rheumatoid arthritis Status: Chronic Current Visit: No Qualifiers: Rheumatoid factor presence: with rheumatoid factor
[2019-08-12] MEDS: PRAVASTATIN SODIUM 20 MG TABLET PO SCH (21:23)
[2019-08-12] MEDS: INSULIN GLARGINE,HUM.REC.ANLOG 100 UNIT/ML PEN.INJCTR SQ SCH (23:47)
[2019-08-13] MEDS: IPRATROPIUM BROMIDE 0.5 MG/2.5 ML AMPUL.NEB NEB SCH ×6 (01:20→21:35)
[2019-08-13] MEDS ORDERED: FUROSEMIDE 40 MG/4 ML VIAL IVP ONE (06:13)
--- NOTE | 2019-08-13 07:09 | Diagnostic Imaging Report ---
PATIENT MR#: [id number] PATIENT PATIENT NAME: YONIS KUO DATE OF : 1955 REFERRING PHYSICIAN: Wyatt Frye EXAM DATE: 08/13/2019 ACCESSION NUMBER: [id number] EXAM DESCRIPTION: CHEST 1VIEW Exam: AP chest. History: Dyspnea. The examination is compared to a study dated August 10, 2019. Lung braxton are well aerated without bill consolidation or effusion. Heart and mediastinal contour are normal. No bony abnormalities are seen. Impression: No bill consolidation or effusion. Read by: Dr. Regan Edwards Transcribed by: Transcribed Date: Electronically signed by: Dr. Regan Edwards Date signed: 08/13/2019 7:09:13 AM
[2019-08-13 07:35] LABS: eGFR (Non-African) > 60
[2019-08-13 07:42] LABS: BASOPHILS % 0.5 % (0.0-1.5); NEUTROPHILS # 14.2 # k/uL (1.4-7.7)
[2019-08-13 07:43] LABS: ANISOCYTOSIS 1+ (NEGATIVE); SEGMENTED NEUTROPHILS % 84 % (39-79); TEAR DROP CELLS 1+ (NEGATIVE)
[2019-08-13] MEDS: GLIMEPIRIDE 2 MG TABLET PO SCH (07:45)
[2019-08-13] MEDS: INSULIN REGULAR, HUMAN 100 UNIT/ML 10ML VIAL SQ SCH ×4 (07:52→21:57)
[2019-08-13] MEDS: INSULIN ASPART 100 UNIT/ML INSULN.PEN SQ SCH ×3 (07:57→17:02)
[2019-08-13] MEDS: APIXABAN 5 MG TABLET PO SCH ×2 (08:54→21:37)
[2019-08-13] MEDS: METOPROLOL SUCCINATE 50 MG TAB.ER.24H PO SCH ×2 (08:54→21:38)
[2019-08-13] MEDS: MORPHINE SULFATE 30 MG PO SCH ×2 (08:55→21:37)
[2019-08-13] MEDS: LISINOPRIL 20 MG TABLET PO SCH (08:55)
[2019-08-13] MEDS: FUROSEMIDE 40 MG TABLET PO SCH (08:56)
[2019-08-13] MEDS: PATIENT OWN MED 1 EACH EACH PO SCH ×3 (08:56→18:32)
[2019-08-13] MEDS: OXYBUTYNIN CHLORIDE 5 MG TABLET PO SCH ×2 (08:56→21:38)
[2019-08-13] MEDS: FAMOTIDINE 20 MG TABLET PO SCH ×2 (08:57→21:37)
[2019-08-13] MEDS: methylPREDNISolone SOD SUCC 40 MG/ML VIAL IVP SCH ×2 (08:57→21:40)
[2019-08-13] MEDS: DIGOXIN 125 MCG TABLET PO SCH (11:32)
[2019-08-13] MEDS: FUROSEMIDE 40 MG/4 ML VIAL IVP SCH (16:35)
[2019-08-13] MEDS ORDERED: 0.9 % SODIUM CHLORIDE 50 ML IV ONE (18:05)
[2019-08-13] MEDS: AZITHROMYCIN 500 MG in 0.9 % SODIUM CHLORIDE 250 ML IV SCH (19:45)
[2019-08-13] MEDS ORDERED: FUROSEMIDE 40 MG TABLET PO ONE (21:00)
[2019-08-13] MEDS: PRAVASTATIN SODIUM 20 MG TABLET PO SCH (21:38)
[2019-08-13] MEDS: hydrOXYzine HCL 25 MG TABLET PO PRN (21:49)
[2019-08-13] MEDS: PATIENT OWN MED 1 EACH EACH INH SCH (21:56)
[2019-08-13] MEDS: INSULIN GLARGINE,HUM.REC.ANLOG 100 UNIT/ML PEN.INJCTR SQ SCH (21:58)
[2019-08-14] MEDS: IPRATROPIUM BROMIDE 0.5 MG/2.5 ML AMPUL.NEB NEB SCH ×3 (01:15→09:20)
[2019-08-14] MEDS: FUROSEMIDE 40 MG/4 ML VIAL IVP SCH (06:45)
[2019-08-14] MEDS: INSULIN REGULAR, HUMAN 100 UNIT/ML 10ML VIAL SQ SCH ×2 (07:10→11:57)
[2019-08-14] MEDS: INSULIN ASPART 100 UNIT/ML INSULN.PEN SQ SCH ×2 (07:14→11:56)
[2019-08-14] MEDS: GLIMEPIRIDE 2 MG TABLET PO SCH (07:16)
[2019-08-14] MEDS: METOPROLOL SUCCINATE 50 MG TAB.ER.24H PO SCH (09:14)
[2019-08-14] MEDS: APIXABAN 5 MG TABLET PO SCH (09:14)
[2019-08-14] MEDS: OXYBUTYNIN CHLORIDE 5 MG TABLET PO SCH (09:15)
[2019-08-14] MEDS: LISINOPRIL 20 MG TABLET PO SCH (09:15)
[2019-08-14] MEDS: FAMOTIDINE 20 MG TABLET PO SCH (09:15)
[2019-08-14] MEDS: MORPHINE SULFATE 30 MG PO SCH (09:15)
[2019-08-14] MEDS: methylPREDNISolone SOD SUCC 40 MG/ML VIAL IVP SCH (09:16)
[2019-08-14] MEDS: PATIENT OWN MED 1 EACH EACH PO SCH (09:16)
[2019-08-14] MEDS: PATIENT OWN MED 1 EACH EACH INH SCH (09:16)
[2019-08-14] MEDS: hydrOXYzine HCL 25 MG TABLET PO PRN (09:19)
[2019-08-14 09:24] VITALS: BP 154/87
--- NOTE | 2019-08-14 10:21 | Inpatient Progress Note ---
Subjective - Required Recertification Statement I anticipate X number of days because-include discharge plan: 1 day - Review of Systems Events since last encounter: I was called in to see patient early this AM because of increasing SOB and respiratory distress. However SaO2 was stable venous blood gasses were normal, chest x-ray was OK, labs and VS remained stable. Subjective: Patient had a good night, walking in the halls without much difficulties. However this AM states that her breathing is worse. Has been having some more congestion. No chest pain noted. Objective - Exam Vitals and I&O: Vital Signs Temp 97.8 F 08/14/19 09:22 Pulse 84 08/14/19 09:22 Resp 20 08/14/19 09:22 BP 154/87 08/14/19 09:22 Pulse Ox 96 08/14/19 09:22 Intake & Output 08/13/19 08/13/19 08/14/19 11:59 23:59 11:59 Intake Total 495 960 660 Output Total 650 800 Balance 495 310 -140 Intake: IV 15 right forarm 15 Oral 480 960 660 Output: Urine 650 800 Other: Voiding Method Toilet Toilet Toilet # Voids 6 # Bowel Movements 0 General: Alert, Oriented to Person, Oriented to Place, Oriented to Time, Cooperative, Mild distress Neck: Supple, No JVD Lungs: Speaks full Sentences, Wheezes (mild), Rhonchi (few course bilteral) Cardiovascular: Regular rate, Normal S1, Normal S2, No murmurs, Gallops Abdomen: Normal bowel sounds Extremities: No clubbing, Other (trace) Skin: Normal, [place], Warm, Dry Neurological: Normal gait, Normal speech, Strength Equal Bilat, Normal tone Psych/Mental Status: Mental status NL, Mood NL, Appropriate Affect, Intact Judgment - Results Results: Laboratory Results WBC 16.80 K/ul (4.00-12.00) H 08/13/19 07:00 RBC 3.65 M/ul (3.90-5.20) L 08/13/19 07:00 Hgb 12.0 g/dL (11.5-16.0) 08/13/19 07:00 Hct 34.6 % (34.5-46.5) 08/13/19 07:00 MCV 95.0 fl (80.0-100.0) 08/13/19 07:00 MCH 32.9 pg (28.0-34.0) 08/13/19 07:00 MCHC 34.7 g/dL (30.0-36.0) 08/13/19 07:00 RDW 15.2 % (11.3-14.3) H 08/13/19 07:00 Plt Count 296 K/mm3 (130-400) 08/13/19 07:00 Neut % (Auto) 84.7 % (39.0-79.0) H 08/13/19 07:00 Lymph % (Auto) 9.7 % (16.0-50.0) L 08/13/19 07:00 [place] % (Auto) 4.1 % (0.0-11.0) 08/13/19 07:00 Eos % (Auto) 1.0 % (0.0-6.8) 08/13/19 07:00 Baso % (Auto) 0.5 % (0.0-1.5) 08/13/19 07:00 Neut # (Auto) 14.2 # k/uL (1.4-7.7) H 08/13/19 07:00 Lymph # (Auto) 1.6 # k/uL (0.6-4.0) 08/13/19 07:00 [place] # (Auto) 0.7 # k/uL (0.0-0.9) 08/13/19 07:00 Eos # (Auto) 0.2 # k/uL (0.0-0.6) 08/13/19 07:00 Baso # (Auto) 0.1 # k/uL (0.0-0.5) 08/13/19 07:00 Seg Neutrophils % 84 % (39-79) H 08/13/19 07:00 Band Neutrophils % 2 % (0-12) 08/13/19 07:00 Lymphocytes % 10 % (16-50) L 08/13/19 07:00 Monocytes % 2 % (0-11) 08/13/19 07:00 Eosinophils % 1 % (0-7) 08/10/19 15:23 Metamyelocytes % 1 % (0-0) H 08/13/19 07:00 Myelocytes % 1 % (0-0) H 08/13/19 07:00 Reactive Lymphocytes 1 % (0-5) 08/10/19 15:23 Plt Morphology Comment Normal (NORMAL) 08/13/19 07:00 Anisocytosis 1+ (NEGATIVE) H 08/13/19 07:00 Tear Drop Cells 1+ (NEGATIVE) H 08/13/19 07:00 RBC Morph Comment Abnormal (NORMAL) H 08/13/19 07:00 Sodium 134 mmol/L (137-145) L 08/13/19 07:00 Potassium 4.1 mmol/L (3.5-5.1) 08/13/19 07:00 Chloride 96 mmol/L (98-107) L 08/13/19 07:00 Carbon Dioxide 26 mmol/L (22-30) 08/13/19 07:00 Anion Gap 16.1 08/13/19 07:00 BUN 33 mg/dL (7-17) H 08/13/19 07:00 Creatinine 0.69 mg/dL (0.52-1.04) 08/13/19 07:00 Estimated Creat Clear 147 08/13/19 07:00 Est GFR ( Amer) > 60 (60-) 08/13/19 07:00 Est GFR (Non-Af Amer) > 60 (60-) 08/13/19 07:00 Glucose 461 mg/dL (74-106) H 08/13/19 07:00 Calcium 9.1 mg/dL (8.4-10.2) 08/13/19 07:00 Total Bilirubin 0.3 mg/dL (0.2-1.3) 08/12/19 08:00 AST 44 U/L (15-46) 08/12/19 08:00 ALT 27 U/L (0-35) 08/12/19 08:00 Alkaline Phosphatase 113 U/L (38-126) 08/12/19 08:00 Total Protein 7.1 g/dL (6.3-8.2) 08/12/19 08:00 Albumin 4.3 g/dL (3.5-5.0) 08/12/19 08:00 Urine Color Yellow (YELLOW) 08/10/19 22:39 Urine Appearance Clear (CLEAR) 08/10/19 22:39 Urine pH 6.0 (5.0 - 8.0) 08/10/19 22:39 Ur Specific [place] 1.010 (1.010-1.030) 08/10/19 22:39 Urine Protein Trace mg/dL (NEGATIVE) 08/10/19 22:39 Urine Ketones 1+ mg/dL (NEGATIVE) H 08/10/19 22:39 Urine Occult Blood Negative (NEGATIVE) 08/10/19 22:39 Urine Nitrite Negative (NEGATIVE) 08/10/19 22:39 Urine Bilirubin Negative (NEGATIVE) 08/10/19 22:39 Urine Urobilinogen 0.2 Eu (0.2-1.0) 08/10/19 22:39 Ur Leukocyte Esterase Negative (NEGATIVE) 08/10/19 22:39 Urine Glucose 3+ mg/dL (NEGATIVE) H 08/10/19 22:39 Digoxin See scanned report 08/10/19 15:30 Assessment/Plan - Assessment/Plan (1) COPD with acute exacerbation Status: Acute Current Visit: Yes Assessment: appear symptomatically worse but labs/CXR stable. Patient feel that she is filling up with fluids. Will start IV lasix and discontinue po lasix. (2) Bronchitis Status: Acute Current Visit: No Assessment: stable (3) Sarcoidosis of lung Status: Chronic Current Visit: No Assessment: stable (4) Controlled atrial fibrillation Status: Chronic Current Visit: No Assessment: stable on home meds (5) Diabetes mellitus Status: Chronic Current Visit: No Qualifiers: Diabetes mellitus type: type 2 Diabetes mellitus complication detail: with polyneuropathy Assessment: blood sugars are coming down with increase insulin (6) Heart failure Status: Chronic Current Visit: No Qualifiers: Heart failure type: diastolic Assessment: possibly a little worse. Will give IV lasix today. (7) Hypertension Status: Chronic Current Visit: No Qualifiers: Hypertension type: essential hypertension Qualified Code(s): I10 - Essential (primary) hypertension Assessment: stable (8) Rheumatoid arthritis Status: Chronic Current Visit: No Qualifiers: Rheumatoid factor presence: with rheumatoid factor Assessment: stable
--- NOTE | 2019-08-14 10:37 | Discharge Summary ---
Discharge Summary - Discharge Sumary Admission Date: 08/10/19 (Acute) Discharge Date: 08/14/19 (Home) Discharge To: Home History of Present Illness: 64-year-old white female with a known history of COPD. Patient is multiple other medical problems including atrial fibrillation, diabetes mellitus, and chronic pain to the lower back. over the last week patient is had increasing shortness of breath dyspnea. Patient stated the symptoms began of the head cold and then moved down into her lungs. Patient no has a productive cough of some green to yellow phlegm. Has had a low-grade fever and chills.patient has been complaining of chest pain related to coughing. Patient been having increasing shortness of breath. Patient was seen in the emergency room started on antibiotic therapy and was given 120mg of sloumedrol. Patient states that the symptoms did not improve the last several days. Patient was seen in the office today. Patient pulse ox was 84% on room air. Patient subsequently admitted to the hospital for further care and evaluation. Condition at Discharge: Stable Home Medications: Ambulatory Orders Medication Instructions Recorded Arformoterol (Nf) [Brovana (Nf)] 15 mcg IH BID 02/15/18 Bisoprolol Fumarate [Zebeta] 10 mg PO DAILY 02/15/18 Ipratropium/Albuterol Sulfate 3 ml NEB DAILY 02/15/18 [Duoneb] Insulin Glargine,Hum.rec.anlog 40 unit SQ HS 08/10/19 [Lantus Solostar] Insulin Lispro [Humalog Kwikpen 40 unit SQ AC15 08/10/19 U-100] Azithromycin 250 mg PO DAILY #2 tablet 08/13/19 LevoFLOXacin [Levaquin] 500 mg PO DAILY #4 tablet 08/13/19 Prednisone 10 mg PO DIRECTED #36 tablet 08/13/19 Fluconazole [Diflucan] 150 mg PO QD #7 tablet 08/14/19 Consultations this Visit: None Procedures this Visit: None Allergies/Adverse Reactions: Allergies Allergy/AdvReac Type Severity Reaction Status Date / Time cefotetan disodium Allergy Unknown Verified 08/07/19 15:44 Dextrose-Water Allergy Unknown Verified 08/07/19 15:44 Sulfa (Sulfonamide Allergy Unknown Verified 08/07/19 15:44 Antibiotics) adhesive Allergy Rash Verified 08/07/19 15:44 sulfamethoxazole Allergy Hives Verified 08/07/19 15:44 [From Bactrim] trimethoprim [From Bactrim] Allergy Hives Verified 08/07/19 15:44 amiodarone AdvReac Shortness Verified 08/07/19 15:44 of Breath butorphanol tartrate AdvReac Shortness Verified 08/07/19 15:44 [From Stadol] of Breath diltiazem HCl [From Cardizem] AdvReac Shortness Verified 08/07/19 15:44 of Breath doxazosin mesylate AdvReac Shortness Verified 08/07/19 15:44 [From Cardura] of Breath gabapentin [From Neurontin] AdvReac Dizziness Verified 08/07/19 15:44 ketamine AdvReac memory Verified 08/07/19 15:44 impairment NSAIDS (Non-Steroidal AdvReac Abdominal Verified 08/07/19 15:44 Anti-Inflamma Pain pregabalin [From Lyrica] AdvReac Shortness Verified 08/07/19 15:44 of Breath Patient Problems: Current Active Problems Problem Status Onset COPD with acute exacerbation Acute Discharge Summary: Patient was admitted to hospital and started on IV steroids and neb treatments. Chest x-ray did not show any pneumonia but it was felt that she might have a bronchitis exacerbating her COPD. She was started on IV antibiotics of Levaquin and azithromycin. Patient had some slow improvement in her breathing status. On the day before discharge she became anxious and felt that she was having some increase dyspnea. Labs and chest x-ray were OK. Patient was given some IV lasix for possible increasing pulmonary congestion which did seem to help some. By the time of discharge she was feeling much better and felt that she could manage at home. Oxygen was weaned down to one liter per [place], patient has oxygen at home. Patient was wondering about hospice care. I advised that I did not feel that she was ready for that. I will make an appointment with her lines tender for further evaluation. - Final Diagnosis (1) COPD with acute exacerbation Problems: Will finish antibiotics and prednisone taper. (3) Sarcoidosis of lung Problems: stable (4) Controlled atrial fibrillation Problems: stable, continue home medications (5) Diabetes mellitus Problems: not well controlled. Will increase insulin while on steroids. (6) Heart failure Problems: stable (7) Hypertension Problems: stable, continue home medications (8) Rheumatoid arthritis Problems: stable, continue home medications
== END 2019-08-14 12:05 | disposition home or self-care (01) | DRG 191 ==
LOC: SOUTH 13:36
PROVIDERS: ADMIT Family Medicine; ATTEND Family Medicine
DX: J44.1 Chronic obstructive pulmonary disease with (acute) exacerbation (principal); I48.20 Chronic atrial fibrillation, unspecified; J20.9 Acute bronchitis, unspecified; J44.0 Chronic obstructive pulmonary disease with (acute) lower respiratory infection; D86.0 Sarcoidosis of lung; E11.42 Type 2 diabetes mellitus with diabetic polyneuropathy; I11.0 Hypertensive heart disease with heart failure; I50.9 Heart failure, unspecified; G89.29 Other chronic pain; M54.5 Low back pain; I25.10 Atherosclerotic heart disease of native coronary artery without angina pectoris; E11.65 Type 2 diabetes mellitus with hyperglycemia; I27.20 Pulmonary hypertension, unspecified; M05.9 Rheumatoid arthritis with rheumatoid factor, unspecified; K21.9 Gastro-esophageal reflux disease without esophagitis; Z86.718 Personal history of other venous thrombosis and embolism; Z90.49 Acquired absence of other specified parts of digestive tract; Z98.51 Tubal ligation status; Z86.018 Personal history of other benign neoplasm; Z96.29 Presence of other otological and audiological implants; Z87.891 Personal history of nicotine dependence; Z88.6 Allergy status to analgesic agent; Z88.2 Allergy status to sulfonamides; Z88.8 Allergy status to other drugs, medicaments and biological substances; Z79.4 Long term (current) use of insulin
CPT/HCPCS: 36415; 71045; 80048; 80053; 80162; 81002; 85025; 87040; 94640; 94760; J0456; J1030; J1815; J1940; J1956; J2930; J7050; 82805; 99221; 99232; 99238; J2920; S1016